=== PATIENT | male | born 1960 | race Caucasian/White ===

== ENCOUNTER 2016-10-29 10:11 | Emergency (ER) | payer MEDICARE ==
[~2016-10-29 10:11] MED LIST: ALBUTEROL MININEB NEB; ALBUTEROL17 GM INH; ALBUTEROL17 GM NEB; ANUCORT-HC25 MG/SUPP PR; AUGMENTIN PO; BACLOFEN10 MG PO; CEPHALEXIN500 M1 PO; CERTAGEN PO; CIPRO; CIPRO PO; CIPRO250 MG PO; COMBIVENT INH14.7 GM INH; COMBIVENT14.7 GM INH; DETROL LA PO; DICLOFENAC PO; DUONEB 2.5-0.5 M3 ML; EFFEXOR PO; EFFEXOR100 MG PO; FLAGYL PO; FLEXERIL PO; FLEXERIL10 MG PO; FLOMAX0.4 M1; FLOMAX0.4 M1 DOB; FLOMAX0.4 M1 PO; GLYCOLAX; HYDROCODONE/APA1 T15 PO; LAMICTAL; LAMICTAL PO; LAMICTAL100 MG PO; LORTAB 7.5-5001 TAB PO; MEDROL DOSEPAK4 MG PO; MOBIC; MOTRIN600 M1 PO; MOTRIN600 MG PO; NABUMETONE PO; NILSTAT PO; NO MEDICATIONS; NORCO1 TAB 10/3 PO; NORFLEX100 M1 PO; OXYCONTIN PO; PEPTO BISMOL; PERCOCET 10/31 UDTA1 PO; PERCOCET 10/6501 TA1 PO; PERCOCET10 PO; PHENERGAN W/CO120 ML PO; PHENERGAN25 M1 PO; PHENERGAN25 MG PO; PREDNISONE PO; PREVACID PO; RISPERIDONE PO; SEROQUEL PO; SKELAXIN PO; SPIRIVA18 MCG INH; SPIRIVA18 MCG PO; STOOL SOFTENER; STOOL SOFTENER OTC; SYMBICORT; TYLENOL #3 PO; TYLOX 5/500 CAP1 CAP PO; ULTRAM PO; VICODIN 5/1 TAB 5/50 PO; VICODIN 5/500 T1 TAB PO; VISTARIL PO; VIT B-12 PO; VOLTAREN75 MG PO; ZOFRAN ODT4 MG/UDTAB PO; ZOLOFT; ZYPREXA; ZYPREXA PO; ZYPREXA10 MG PO
== END 2016-10-29 10:32 | disposition home or self-care (01) ==
LOC: SED 10:11
DX: J44.9 Chronic obstructive pulmonary disease, unspecified (principal); F31.9 Bipolar disorder, unspecified; Z98.890 Other specified postprocedural states; F17.200 Nicotine dependence, unspecified, uncomplicated; Z91.041 Radiographic dye allergy status; Z88.1 Allergy status to other antibiotic agents
CPT/HCPCS: 94640; 99283

== ENCOUNTER 2016-11-12 05:25 | Observation (INO) | payer MEDICARE ==
--- NOTE | ~2016-11-12 | DS ---
Unit #: [id number] #: [id number] Patient: KRISTIN SOLANO [id number] [facility]. [place], [place] [address] [id number] I MR#: [id number] NAME: KRISTIN SOLANO ROOM: 548 Age: 55 Sex: M Admission Date: 11/12/2016 : 1960 Discharge Date: 11/13/2016 Attending Physician: Krzysztof Dee M.D. Primary Care Physician: Primary Care Physician No DISCHARGE SUMMARY ADMISSION DIAGNOSIS Syncope. HISTORY OF PRESENT ILLNESS The patient is a 55-year-old male admitted on 11/12/2016 from [facility] secondary to passing out. He states it has been going on for about a week. He had 4 episodes. Ultimately, orthostatic blood pressures were checked and upon presentation the patient was noted to have a blood pressure of 133/76 and heart rate of 80 while lying with blood pressure of 110/75, and heart rate of 102 while standing. Given this the patient was started on IV fluids and now at the time of discharge the patient's orthostatic vitals are much improved with a blood pressure of 135/71, heart rate of 68 lying; and 124/74, and 79 standing. I have discussed the importance of drinking water rather than caffeinated drinks. The patient and family say they understand. On the day of discharge, the patient's family was present. In addition to the history given to me by the patient, they had add that during these episodes, the patient has some speech changes. I feel that this is likely secondary to his hypoperfusion and syncope rather than a stroke or seizure activity. However, should concern for cyst among family, I have recommended that they call and follow up with Dr. Vladislav Dennis. DISCHARGE MEDICATIONS Albuterol q.4 hours as needed, Ventolin 1 puff q.4 hours p.r.n., Lamictal 100 mg p.o. b.i.d., Effexor 30 mg p.o. daily before breakfast, Zyprexa 20 mg p.o. q.h.s. FOLLOWUP The patient should follow up with his primary care provider Dr. Aldana in 1 to 2 weeks. Additionally should follow up with Dr. Dennis as described above. Dictated by... Caitlin Mckay/martha TD: 11/14/2016 01:02 JOB #: [id number] Unit #: [id number] #: [id number] Patient: KRISTIN SOLANO [place] DISCHARGE SUMMARY Page 1 of 1 X Krzysztof Dee MD X DISCHARGE SUMMARY
--- NOTE | ~2016-11-12 | HP ---
Unit #: [id number] #: [id number] Patient: KRISTIN SOLANO [id number] [address] [address] [id number] I MR#: [id number] NAME: KRISTIN SOLANO. ROOM: 548 Age: 55 Sex: M Admission Date: 11/12/2016 : 1960 Attending Physician: Krzysztof Dee M.D. Primary Care Physician: No Primary Care Physician HISTORY AND PHYSICAL CHIEF COMPLAINT Passed out. HISTORY OF PRESENT ILLNESS The patient is a 55-year-old male who presented to the [facility] emergency department with complaint of passing out. He states it started about a week ago. He states in this week he has passed out four times. He denies chest pain and any worsening shortness of breath. He states he feels dizzy/lightheaded with standing and does feel that it is about to happen to him with a darkening sensation. He denies nausea, vomiting, fevers, diarrhea and diaphoresis. PAST MEDICAL HISTORY Chronic back pain, COPD and bipolar disorder. PAST SURGICAL HISTORY A knee surgery, an appendectomy and a jaw surgery. SOCIAL HISTORY The patient states he smokes five cigarettes a day, denies alcohol and illicit drug use. FAMILY HISTORY Bipolar disorder. ALLERGIES Contrast dye and tetracycline. HOME MEDICATIONS 1. Albuterol p.r.n. 2. Effexor 300 mg q.a.m. with breakfast. 3. Lamictal 100 mg p.o. b.i.d. 4. Zyprexa 20 mg p.o. q.h.s. REVIEW OF SYSTEMS Ten-point review of systems obtained, negative except as per HPI with the addition of some chronic back pain and chronic shortness of breath and cough which have not worsened recently and the patient attributes to his COPD. PHYSICAL EXAMINATION VITAL SIGNS: Temperature 98.2. Pulse 80. Blood pressure 113/76. GENERAL: A 55-year-old male in no acute distress who appears stated age. Unit #: [id number] #: [id number] Patient: KRISTIN SOLANO HEENT: Pupils are equally round. Extraocular movements intact. Mucous membranes dry. NECK: Supple. No JVD. No lymphadenopathy. CARDIAC: Regular rate and rhythm. No murmurs, gallops or rubs. LUNGS: Clear to auscultation bilaterally. ABDOMEN: Nontender, nondistended. Bowel sounds positive. EXTREMITIES: No cyanosis, clubbing or edema. They are warm and dry. PSYCHIATRIC: Alert and oriented x3. Affect is appropriate. NEUROLOGICAL: Cranial nerves II-XII intact grossly. The patient moves all extremities equally and with purpose. SKIN: No rashes, bruises or ulcers. MUSCULOSKELETAL: No muscle or joint pain. No muscle or joint swelling. DIAGNOSTIC STUDIES LABORATORY: Chemistries are normal. CBC is normal. IMAGING: None. ASSESSMENT AND PLAN 1. Syncope: Patient does appear to be orthostatic. I will bolus him with fluids and recheck later this afternoon. I have ordered a 2D echo. The patient's medications may be contributing. Patient himself states that he feels this is less likely given that he has been on the same medications for years however. The patient is on telemetry. Will monitor for any arrhythmias. However, this does appear more vasovagal/neurogenic given the prodrome the patient feels prior to loss of consciousness. 2. Chronic pain: Continue home meds. 3. Prophylaxis: Patient is in observation, is low risk. Dictated by Caitlin Mckay/brennan TD: 11/12/2016 19:12 JOB #: [id number] HISTORY AND PHYSICAL Page 1 of 1 X Krzysztof Dee MD HISTORY AND PHYSICAL
--- NOTE | ~2016-11-12 | EKG ---
PATIENT: KRISTIN SOLANO UNIT #: [id number] Ventricular Rate: 67 BPM Atrial Rate: 67 BPM P-R Interval: 176 ms QRS Duration: 86 ms Q-T Interval: 376 ms QTC Calculation(Bezet): 397 ms P [place]: 51 degrees Calculated R [place]: 12 degrees Calculated T [place]: 33 degrees Diagnosis Line: Normal sinus rhythm Diagnosis Line: Nonspecific ST abnormality Diagnosis Line: Otherwise normal ECG Diagnosis Line: When compared with ECG of 20-SEP-2009 02:42, Diagnosis Line: No significant change was found Diagnosis Line: Confirmed by TAMIKA SOUTH MD ([id number]) on 11/12/2016 Diagnosis Line: 4:42:17 PM INTERPRETING MD: AKOSUA COOLEY
[2016-11-12] MEDS ORDERED: ALBUTEROL2.5 MG/0.5 INH (07:52)
[2016-11-12] MEDS ORDERED: ALBUTEROL17 GM INH (07:52)
[2016-11-12 08:16] LABS: HEMOGLOBIN 14.3 gm/dL (13.0-16.0); MEAN CELL VOLUME 90.7 FL (83-96); MEAN CORPUSCULAR HEMOGLOBIN 30.9 PG (28-34); MEAN CORPUSCULAR HGB CONC 34.1 g/dL (30-36); RED BLOOD COUNT 4.63 X10e (3.90-5.60); RED CELL DISTRIBUTION WIDTH 13.1 % (11.0-15.5); WHITE BLOOD COUNT 10.9 X10e3 (4.0-10.5)
[2016-11-12 08:34] LABS: PARTIAL THROMBOPLASTIN TIME 25.9 SECONDS (23.5-31.3); PROTHROMBIN TIME (PATIENT) 10.3 SECONDS (9.6-11.5)
[2016-11-12 08:43] LABS: ALBUMIN SERUM 3.9 g/dL (3.5-5.0); BILIRUBIN,TOTAL 0.7 mg/dL (0.2-2.0); CALCIUM SERUM 9.2 mg/dL (8.4-10.2); POTASSIUM 3.6 mmol/L (3.5-5.1); PROTEIN TOTAL SERUM 6.6 g/dL (6.0-8.3)
[2016-11-13 04:55] LABS: HEMATOCRIT 38.6 % (38.0-50.0); HEMOGLOBIN 12.8 gm/dL (13.0-16.0); MEAN CELL VOLUME 91.4 FL (83-96); MEAN CORPUSCULAR HEMOGLOBIN 30.4 PG (28-34); MEAN CORPUSCULAR HGB CONC 33.2 g/dL (30-36); MEAN PLATELET VOLUME 6.6 FL (6.5-11.5); RED BLOOD COUNT 4.22 X10e (3.90-5.60); RED CELL DISTRIBUTION WIDTH 12.9 % (11.0-15.5); WHITE BLOOD COUNT 8.5 X10e3 (4.0-10.5)
[2016-11-13 05:46] LABS: ALBUMIN SERUM 3.4 g/dL (3.5-5.0); BILIRUBIN,TOTAL 0.4 mg/dL (0.2-2.0); BUN/CREATININE RATIO 15.55; CALCIUM SERUM 8.3 mg/dL (8.4-10.2); CREATININE SERUM 0.9 mg/dL (0.6-1.4); GLOM FILT RATE Estimated 96.5 mL/min (>60); POTASSIUM 3.8 mmol/L (3.5-5.1); PROTEIN TOTAL SERUM 5.7 g/dL (6.0-8.3)
== END 2016-11-13 15:10 | disposition home or self-care (01) ==
LOC: C5B 05:25
PROVIDERS: Internal Medicine
DX: R55 Syncope and collapse (principal); G89.29 Other chronic pain; F17.210 Nicotine dependence, cigarettes, uncomplicated; F31.9 Bipolar disorder, unspecified; Z88.1 Allergy status to other antibiotic agents; Z91.041 Radiographic dye allergy status; Z81.8 Family history of other mental and behavioral disorders
CPT/HCPCS: 80053; 82550; 84484; 85027; 85610; 85730; 93005; 93306; 94640; 94760; G0378

== ENCOUNTER → 2016-11-30 | Outpatient (CLI) | payer MEDICARE ==
[~2016-11-30] MED LIST changes: +ALBUTEROL2.5 MG/0.5 INH; +ASPIRIN81 MG PO
--- NOTE | ~2016-11-30 | TH ---
Unit #: [id number] #: [id number] Patient: KRISTIN SOLANO [id number] [address] [address] [id number] O MR#: [id number] NAME: KRISTIN SOLANO : 1960 SEX: M STUDY DATE/TIME: UNIT: [facility] ROOM: STUDY DESCRIPTION: Nuclear Study Attending Physician: Susanna Roberts A.P.R.N. Referring Physician: Susanna Roberts A.P.R.N. Primary Care Physician: Generic Doctor Not In System CARDIOLOGY REPORT EXAM Lexiscan Cardiolite Stress Test - Nuclear Portion PROCEDURE Using technetium 99m labeled Cardiolite, rest and stress SPECT images were obtained. Multiple SPECT images were obtained in various views including horizontal and vertical long axis and short axis views of the left ventricle. Images were obtained by gated SPECT method. The patient was administered 10.86 mCi of Cardiolite at rest. The patient was administered 30.0 mCi of Cardiolite after Lexiscan infusion was completed. On the stress images, there is a small area of mild decreased isotope activity involving the lateral wall. The rest images show normal perfusion. Comparing rest and stress images, there is suspicion for a small area of stress-induced ischemia involving the lateral wall of the left ventricle. The left ventricular ejection fraction is calculated to be 60%. There is no focal wall motion abnormality seen. CONCLUSION 1. Suspicion for small area of stress induced ischemia involving the lateral wall of the left ventricle. 2. The left ventricular ejection fraction is calculated to be 60%. 3. There is no focal wall motion abnormality seen. 4. Abnormal Lexiscan Cardiolite stress test. Clinical correlation is requested. Dictated by... Caitlin Banks TD: 12/01/2016 07:10 JOB #: [id number] Unit #: [id number] #: [id number] Patient: KRISTIN SOLANO CARDIOLOGY REPORT Page 1 of 1 X Elena Griffin MD <ELECTRONICALLY SIGNED> 03/05/17 1429 CARDIOLOGY REPORT
--- NOTE | ~2016-11-30 | ST ---
Unit #: [id number] #: [id number] Patient: KRISTIN SOLANO [id number] [facility]. [address] [address] [id number] O MR#: [id number] NAME: KRISTIN SOLANO : 1960 SEX: M STUDY DATE/TIME: 11/30/2016 UNIT: [facility] ROOM: STUDY DESCRIPTION: Walking Lexiscan stress test Attending Physician: Susanna Roberts A.P.R.N. Referring Physician: Susanna Roberts A.P.R.N. Primary Care Physician: Generic Doctor Not In System CARDIOLOGY REPORT PROCEDURE PERFORMED EKG portion of a walking Lexiscan Cardiolite stress test. REASON FOR EXAM History of shortness of breath. DISCUSSION Baseline EKG reveals sinus rhythm with a ventricular rate of 79 beats per minute. Nonspecific ST-T wave changes noted. A total of 0.4 mg of Lexiscan was injected per protocol, followed by Cardiolite while the patient was exercising on the treadmill. There were no complaints of chest pain. There were no sustained arrhythmias noted. There were no ST or T wave changes to suggest ischemia. The maximal heart rate was 79 beats per minute with a maximal blood pressure of 150/72 mmHg. The test was stopped due to protocol completion. IMPRESSION 1. Negative EKG portion of walking Lexiscan Cardiolite stress test. 2. There were no complaints of chest pain. 3. There were no sustained arrhythmias noted. 4. There were no ST or T wave changes to suggest ischemia. 5. Please correlate with Cardiolite images. Dictated by... Angelia Caldera APRN for Elena Griffin M.D. TR/winifred TD: 12/01/2016 15:25 JOB #: [id number] CARDIOLOGY REPORT Page 1 of 1 X CARDIOLOGY REPORT
== END | disposition home or self-care (01) ==
LOC: CNUC 07:59
DX: R06.02 Shortness of breath (principal); R94.8 Abnormal results of function studies of other organs and systems
CPT/HCPCS: 78452; 93017; A9500; J2785

== ENCOUNTER 2017-02-05 04:46 | Emergency (ER) | payer MEDICARE ==
--- NOTE | ~2017-02-05 | CT4 ---
[facility] A Service [facility] RADIOLOGY TEXT RESULTS PATIENT: KRISTIN SOLANO LOCATION: SED : 62 UNIT #: [id number] AGE: [address]: Tyler Cristina MD SEX: M ORDER DR: [id number] [address] [id number] MR#: [id number] Acc #: [id number] NAME: KRISTIN SOLANO. : 1960 SEX: M STUDY DATE/TIME: 02/05/2017 6:07 UNIT: SED ROOM: STUDY DESCRIPTION: CT Abd and Pelv Wo Cont Attending Physician: Tyler Cristina M.D. Ordering Physician: Tyler Cristina M.D. Primary Care Physician: Korin Casillas M.D. MEDICAL IMAGING REPORT This report is preliminary unless electronic signature is present. EXAM CT scan of the abdomen and pelvis without contrast, 02/05/2017 HISTORY Right flank pain, right lower quadrant abdominal pain and right testicle pain for 1 week with history of kidney stones. Evaluate for obstructing renal calculus. TECHNIQUE Spiral CT was performed through the abdomen and pelvis without oral or intravenous contrast administration using renal stone protocol. This CT exam was performed with one or more of the following radiation dose reduction techniques: automatic exposure control, adjustment of mA and/or kV according to patient size, and iterative reconstruction. FINDINGS ABDOMEN: There is no obstructing renal or ureteral calculus. The kidneys are normal bilaterally. The visualized liver, spleen, pancreas, gallbladder and biliary tree and adrenal glands are normal. PELVIS: The gut, mesenteric and danny structures are normal. There is no free fluid in the abdomen or pelvis. IMPRESSION No obstructing renal or ureteral calculus. Dictated by... Darren Galdamez M.D. THIS IS AN ELECTRONICALLY VERIFIED REPORT Darren Galdamez M.D. at 02/06/2017 6:24 AM [facility] A Service [facility] RADIOLOGY TEXT RESULTS PATIENT: KRISTIN SOLANO LOCATION: SED : 62 UNIT #: [id number] AGE: [address]: Tyler Cristina MD SEX: M ORDER DR: [place] TD: 02/05/2017 11:46 JOB #: [id number] MEDICAL IMAGING REPORT Page 1 of 1
[~2017-02-05 04:46] MED LIST changes: -ASPIRIN81 MG PO
[2017-02-05 05:35] LABS: URINE SOURCE CLEAN CATCH
[2017-02-05 05:36] LABS: URINE APPEARANCE CLEAR; URINE BILIRUBIN NEG (NEG); URINE BLOOD NEG (NEG); URINE COLOR YELLOW; URINE GLUCOSE NEG (NORM); URINE KETONE NEG (NEG); URINE LEUKOCYTE ESTERASE NEG (NEG); URINE NITRATE NEG (NEG); URINE PH 6.5 (5-8); URINE PROTEIN NEG (NEG); URINE SPECIFIC GRAVITY <=1.005 (1.003-1.035); URINE UROBILINOGEN 0.2 MG/DL (NORM)
[2017-02-05 05:37] LABS: MICRO INDICATED? NO
[2017-02-05 06:10] LABS: BASOPHIL# 0.1 X10e3 (0-0.3); BASOPHIL% 1.1 % (0-2.5); EOSINOPHIL# 0.1 X10e3 (0-0.7); EOSINOPHIL% 0.6 % (0.0-7.0); HEMATOCRIT 42.8 % (38.0-50.0); HEMOGLOBIN 14.5 gm/dL (13.0-16.0); LYMPHOCYTE# 2.8 X10e3 (1.0-3.5); LYMPHOCYTE% 26.5 % (17.0-45.0); MEAN CELL VOLUME 89.7 FL (83-96); MEAN CORPUSCULAR HEMOGLOBIN 30.4 PG (28-34); MEAN CORPUSCULAR HGB CONC 33.9 g/dL (30-36); MEAN PLATELET VOLUME 6.8 FL (6.5-11.5); MONOCYTE# 0.7 X10e3 (0-1.0); MONOCYTE% 6.4 % (3.0-12.0); NEUTROPHIL# 6.9 X10e3 (1.5-7.1); NEUTROPHIL% 65.4 % (40-75); PLATELET COUNT 302 X10e3 (140-420); RED BLOOD COUNT 4.77 X10e (3.90-5.60); RED CELL DISTRIBUTION WIDTH 13.2 % (11.0-15.5); WHITE BLOOD COUNT 10.5 X10e3 (4.0-10.5)
[2017-02-05 06:13] LABS: DIFF IND NO
[2017-02-05 06:36] LABS: ALBUMIN SERUM 4.2 g/dL (3.5-5.0); BILIRUBIN,TOTAL 1.2 mg/dL (0.2-2.0); CALCIUM SERUM 8.7 mg/dL (8.4-10.2); GLOM FILT RATE Estimated 84.4 mL/min (>60); POTASSIUM 3.4 mmol/L (3.5-5.1); PROTEIN TOTAL SERUM 6.9 g/dL (6.0-8.3)
== END 2017-02-05 06:59 | disposition home or self-care (01) ==
LOC: SED 04:46
DX: R10.9 Unspecified abdominal pain (principal); R30.0 Dysuria; R11.0 Nausea; J44.9 Chronic obstructive pulmonary disease, unspecified; F31.9 Bipolar disorder, unspecified; F17.200 Nicotine dependence, unspecified, uncomplicated; Z87.442 Personal history of urinary calculi; Z79.899 Other long term (current) drug therapy; Z91.041 Radiographic dye allergy status
CPT/HCPCS: 74176; 80053; 81003; 85025; 96361; 96374; 99284; J2405

== ENCOUNTER 2017-03-19 12:40 | Emergency (ER) | payer MEDICARE ==
[2017-03-19] MEDS ORDERED: ASPIRIN81 MG PO (12:50)
== END 2017-03-19 13:42 | disposition home or self-care (01) ==
LOC: SED 12:40
DX: H10.021 Other mucopurulent conjunctivitis, right eye (principal); Z87.442 Personal history of urinary calculi; J44.9 Chronic obstructive pulmonary disease, unspecified; F17.210 Nicotine dependence, cigarettes, uncomplicated; Z98.890 Other specified postprocedural states
CPT/HCPCS: 99283